=== PATIENT | female | born 1935 | race Caucasian/White ===

== ENCOUNTER 2016-09-01 10:12 | Outpatient (CLI) | payer MEDICARE, BC ==
[2014-05-18 13:35] VITALS: O2SAT 97
== END 2016-09-01 10:13 | disposition home or self-care (01) | DRG 74 ==
LOC: CONVCARE 10:12
PROVIDERS: ATTEND Orthopaedic Surgery
DX: G56.03 Carpal tunnel syndrome, bilateral upper limbs (principal)
CPT/HCPCS: 73100

== ENCOUNTER 2016-09-08 10:03 | Day surgery (SDC) | payer MEDICARE, BC ==
[2016-09-08] MEDS ORDERED: PROPOFOL 10 MG/ML EMU IV ONE (11:11)
[2016-09-08] MEDS ORDERED: LIDOCAINE HCL 1% MPF SOL ONE (11:46)
[2016-09-08] MEDS ORDERED: CEFAZOLIN SODIUM 1 GM PDS ONE (11:56)
[2016-09-08] MEDS ORDERED: FENTANYL CITRATE 50 MCG/ML SOL ONE (11:56)
[2016-09-08 12:57] VITALS: RESP 18
[2016-09-08 13:29] VITALS: PULSE 66; TEMP 97
[2016-09-08 13:42] VITALS: BP 130/77; O2SAT 94
== END 2016-09-08 14:10 | disposition home or self-care (01) | DRG 74 ==
LOC: SURG 10:03
PROVIDERS: ATTEND Orthopaedic Surgery
DX: G56.02 Carpal tunnel syndrome, left upper limb (principal)
CPT/HCPCS: J0690; J3010; A6402; J2001; J2704

== ENCOUNTER 2017-01-09 21:25 | Inpatient (IN) | payer MEDICARE, BC ==
[2017-01-09] MEDS ORDERED: TRAMADOL HYDROCHLORIDE 50 MG TAB PO ONE (22:06)
[2017-01-09] MEDS ORDERED: TRAMADOL HYDROCHLORIDE 50 MG TAB ONE (22:08)
[2017-01-09] MEDS ORDERED: HYDROMORPHONE 1 MG/ML SYRINGE IV PRN (23:02)
[2017-01-09] MEDS: CYCLOBENZAPRINE 10 MG TAB PO PRN (23:28)
[2017-01-09 23:55] VITALS: RESP 16
[2017-01-10] MEDS: TRAMADOL HYDROCHLORIDE 50 MG TAB PO PRN ×4 (01:48→16:50)
[2017-01-10] MEDS ORDERED: METFORMIN HYDROCHLORIDE 500 MG TAB PO SCH ×2 (07:00→09:00)
[2017-01-10] MEDS ORDERED: HYDROCHLOROTHIAZIDE 25 MG TAB PO SCH (09:00)
[2017-01-10] MEDS ORDERED: EXENATIDE 10 MCG SC SCH (09:00)
[2017-01-10] MEDS ORDERED: PREDNISONE 20 MG TAB PO SCH (09:00)
[2017-01-10] MEDS ORDERED: OXYBUTYNIN CHLORIDE 10 MG TER PO SCH (09:00)
[2017-01-10] MEDS ORDERED: ATENOLOL 25 MG TAB PO SCH (09:00)
[2017-01-10] MEDS ORDERED: ASPIRIN 81 MG CHEWABLE CTB PO SCH (09:00)
[2017-01-10] MEDS ORDERED: LISINOPRIL 20 MG TAB PO SCH (09:00)
[2017-01-10] MEDS ORDERED: INSULIN GLARGINE, RECOMBINAN 100 U/ML SOL SC SCH (09:00)
[2017-01-10] MEDS ORDERED: AMLODIPINE 5 MG TAB PO SCH (09:00)
[2017-01-10 12:51] VITALS: TEMP 97.6
[2017-01-10] MEDS: CYCLOBENZAPRINE 10 MG TAB PO PRN (15:24)
[2017-01-10 17:13] VITALS: BP 116/80; PULSE 61; O2SAT 94
[2017-01-10] MEDS ORDERED: GABAPENTIN 300 MG CAP PO SCH (21:00)
[2017-01-10] MEDS ORDERED: CLOTRIMAZOLE 1% CREAM TOP SCH (23:15)
== END 2017-01-10 16:55 | disposition home or self-care (01) | DRG 552 ==
LOC: ED 21:25 → ACUTE CARE 22:51
PROVIDERS: ADMIT Family Medicine; ATTEND Family Medicine
PROC: F01ZDFZ Gait and/or Balance Assessment using Assistive, Adaptive, Supportive or Protective Equipment (ICD-10-PCS; principal; 2017-01-10)
PROC: F01ZBZZ Bed Mobility Assessment (ICD-10-PCS; 2017-01-10)
PROC: F01ZCZZ Transfer Assessment (ICD-10-PCS; 2017-01-10)
PROC: F01K5ZZ Range of Motion and Joint Integrity Assessment of Musculoskeletal System - Upper Back / Upper Extremity (ICD-10-PCS; 2017-01-10)
PROC: F01L5ZZ Range of Motion and Joint Integrity Assessment of Musculoskeletal System - Lower Back / Lower Extremity (ICD-10-PCS; 2017-01-10)
PROC: F01L0ZZ Muscle Performance Assessment of Musculoskeletal System - Lower Back / Lower Extremity (ICD-10-PCS; 2017-01-10)
DX: M54.5 Low back pain (principal); E11.22 Type 2 diabetes mellitus with diabetic chronic kidney disease; N18.3 Chronic kidney disease, stage 3 (moderate); I12.9 Hypertensive chronic kidney disease with stage 1 through stage 4 chronic kidney disease, or unspecified chronic kidney disease; Z96.651 Presence of right artificial knee joint
CPT/HCPCS: 72120; 72170; 82962; 99222; 99283; J1817

== ENCOUNTER 2017-06-24 08:07 | Day surgery (SDC) | payer MEDICARE, BC ==
[~2017-06-24 08:07] MED LIST: PROPOFOL 500 MG/50 ML EMU IV ONE
[2017-06-24 11:07] VITALS: RESP 18
[2017-06-24 11:21] VITALS: BP 167/71; PULSE 53; TEMP 97.2; O2SAT 99
== END 2017-06-24 12:10 | disposition home or self-care (01) | DRG 951 ==
LOC: SURG 08:07
PROVIDERS: ATTEND Surgery
DX: Z12.11 Encounter for screening for malignant neoplasm of colon (principal); E11.9 Type 2 diabetes mellitus without complications; D12.0 Benign neoplasm of cecum; Z80.0 Family history of malignant neoplasm of digestive organs; Z86.010 Personal history of colon polyps; D12.2 Benign neoplasm of ascending colon; D12.4 Benign neoplasm of descending colon; D12.3 Benign neoplasm of transverse colon; Z79.4 Long term (current) use of insulin
CPT/HCPCS: 82962; J2704

== ENCOUNTER 2018-04-10 02:24 | Emergency (ER) | payer MEDICARE, BC ==
[2018-04-10 02:34] VITALS: RESP 16; TEMP 98.6; O2SAT 95
[2018-04-10 02:44] LABS: BASOPHILS % (AUTO) 0 % (0-3); EOSINOPHILS % (AUTO) 2 % (0-9); HEMATOCRIT 40 % (35-47); HEMOGLOBIN 12.8 gm/dl (12.0-15.5); LYMPHOCYTES % (AUTO) 15.3 % (10-50); MEAN CORPUSCULAR HEMOGLOBIN 25.5 pg (27.0-32.0); MEAN CORPUSCULAR HGB CONC 31.7 gm/dl (32.0-36.0); MONOCYTES % (AUTO) 7.6 % (0-12); NEUTROPHILS % (AUTO) 74.3 % (37-80)
[2018-04-10 02:46] LABS: MEAN CORPUSCULAR VOLUME 80 fL (81-99)
[2018-04-10 03:01] LABS: ALBUMIN 2.9 gm/dl (3.4-5.0); ALKALINE PHOSPHATASE 69 IU/L (46-116); ALT 21 IU/L (14-63); AST 17 IU/L (15-37); BILIRUBIN,TOTAL 0.5 mg/dl (0.2-1.0); BLOOD UREA NITROGEN 26 mg/dl (7-18); CALCIUM 8.8 mg/dl (8.5-10.1); CARBON DIOXIDE 29.7 mEq/L (21-32); CHLORIDE 103 mMol/L (98-107); GLUCOSE 67 mg/dl (74-106); POTASSIUM 3.4 mMol/L (3.5-5.1); SODIUM 140 mMol/L (136-145); TOTAL PROTEIN 7.2 gm/dl (6.4-8.2); TROP I < 0.017 ng/ml (0.000-0.056)
[2018-04-10 03:54] LABS: APPEARANCE,URINE Clear; BILIRUBIN,URINE NEGATIVE (NEGATIVE); COLOR,URINE Yellow; GLUCOSE, URINE (UA) NEGATIVE (NEGATIVE); KETONES,URINE NEGATIVE (NEGATIVE); LEUKOCYTE ESTERASE ,URINE NEGATIVE (NEGATIVE); NITRATE,URINE NEGATIVE (NEGATIVE); OCCULT BLOOD,URINE NEGATIVE (NEG-TRACE); UROBILINOGEN,URINE 0.2 (0.2-1.0 EU)
[2018-04-10 03:56] VITALS: BP 138/53; PULSE 51
[2018-04-10 04:04] LABS: BACTERIA 2+ (< 1+); CRYSTALS NEGATIVE (0-3 AVE/HPF); EPITHELIAL CELLS NEGATIVE (SQUAMOUS); RBC,URINE NEGATIVE (0-3AV/HPF); WBC,URINE NEGATIVE (0-5AV/HPF)
== END 2018-04-10 04:56 | disposition home or self-care (01) | DRG 641 ==
LOC: ED 02:24
DX: E16.2 Hypoglycemia, unspecified (principal); R41.0 Disorientation, unspecified; Z79.4 Long term (current) use of insulin; E11.22 Type 2 diabetes mellitus with diabetic chronic kidney disease; N18.3 Chronic kidney disease, stage 3 (moderate); I10 Essential (primary) hypertension; R40.2362 Coma scale, best motor response, obeys commands, at arrival to emergency department; R40.2142 Coma scale, eyes open, spontaneous, at arrival to emergency department; R40.2252 Coma scale, best verbal response, oriented, at arrival to emergency department
CPT/HCPCS: 36415; 70450; 80053; 81001; 82962; 84443; 84484; 85025; 93005; 99283; 99285

== ENCOUNTER 2019-03-07 05:53 | Emergency (ER) | payer MEDICARE, BC ==
[2019-03-07 06:20] VITALS: TEMP 97.2
[2019-03-07 06:50] LABS: BASOPHILS % (AUTO) 1 % (0-3); EOSINOPHILS % (AUTO) 1 % (0-9); HEMATOCRIT 40 % (35-47); HEMOGLOBIN 12.6 gm/dl (12.0-15.5); LYMPHOCYTES % (AUTO) 6.8 % (10-50); MEAN CORPUSCULAR HEMOGLOBIN 26.6 pg (27.0-32.0); MEAN CORPUSCULAR HGB CONC 31.9 gm/dl (32.0-36.0); MEAN CORPUSCULAR VOLUME 83 fL (81-99); MONOCYTES % (AUTO) 5.8 % (0-12); NEUTROPHILS % (AUTO) 85.8 % (37-80)
[2019-03-07 07:02] LABS: ALBUMIN 3.1 gm/dl (3.4-5.0); BILIRUBIN,TOTAL 0.5 mg/dl (0.2-1.0); CALCIUM 8.5 mg/dl (8.5-10.1); CARBON DIOXIDE 29.1 mEq/L (21-32); CREATININE 1.48 mg/dl (0.60-1.00)
[2019-03-07 07:26] LABS: APPEARANCE,URINE Cloudy; BILIRUBIN,URINE NEGATIVE (NEGATIVE); COLOR,URINE Yellow; GLUCOSE, URINE (UA) NEGATIVE (NEGATIVE); KETONES,URINE NEGATIVE (NEGATIVE); LEUKOCYTE ESTERASE ,URINE NEGATIVE (NEGATIVE); NITRATE,URINE POSITIVE (NEGATIVE); OCCULT BLOOD,URINE NEGATIVE (NEG-TRACE); UROBILINOGEN,URINE 0.2 (0.2-1.0 EU)
[2019-03-07 07:36] LABS: BACTERIA 3+ (< 1+); CRYSTALS NEGATIVE (0-3 AVE/HPF); EPITHELIAL CELLS 0-2 (SQUAMOUS); RBC,URINE NEGATIVE (0-3AV/HPF)
[2019-03-07] MEDS ORDERED: LACTATED RINGERS 1,000 ML IV ONE (07:54)
[2019-03-07] MEDS ORDERED: SODIUM CHLORIDE 0.9% 50 ML 25 ML IV PRN (08:28)
[2019-03-07] MEDS ORDERED: PIPERACILLIN/TAZOBACT 3.375 GM 3.375 GM in SODIUM CHLORIDE 0.9% 100 ML 100 ML IV ONE (08:28)
[2019-03-07] MEDS ORDERED: ONDANSETRON HCL 4 MG/2 ML SOL IV ONE (08:35)
[2019-03-07] MEDS ORDERED: MORPHINE SULFATE 10 MG/ML SOL IV ONE (08:36)
[2019-03-07] MEDS ORDERED: MORPHINE SULFATE 10 MG/ML SOL ONE (08:40)
[2019-03-07] MEDS ORDERED: PIPERACILLIN/TAZOBACT 3.375 GM PDS IV ONE (08:40)
[2019-03-07] MEDS ORDERED: ONDANSETRON HCL 4 MG/2 ML SOL ONE (08:40)
[2019-03-07 11:05] VITALS: BP 155/63; PULSE 60; RESP 18; O2SAT 96
== END 2019-03-07 09:25 | disposition short-term general hospital (02) | DRG 373 ==
LOC: ED 05:53
DX: K35.30 Acute appendicitis with localized peritonitis, without perforation or gangrene (principal); E11.9 Type 2 diabetes mellitus without complications
CPT/HCPCS: 36415; 74176; 80053; 81001; 82150; 85025; 87077; 87088; 87186; 96365; 96366; 96374; 96375; 99070; 99284; 99285; J2270; J2405; J2543